=== PATIENT | male | born 1970 | race Caucasian/White ===

== ENCOUNTER 2019-01-20 12:53 | Emergency (ER) | payer OTHER ==
[~2019-01-20] VITALS: Ht 175.3 cm; Wt 90.7 kg
[~2019-01-20 12:53] MED LIST: CIPRO500 MG PO; COZAAR 25 MG TA25 M2 PO; DESYREL50 MG PO; FLOMAX PO; HYDROCODONE-APA1 TA1 PO; LOSARTAN POTASS25 MG PO; NORCO 5-325 TA1 EACH PO; PHENERGAN 25 MG25 M1 PO; VICODIN 5-5001 EACH PO
[2019-01-20 13:10] LABS: URINE BILIRUBIN NEGATIVE (Negative); URINE BLOOD TRACE (Negative); URINE CLARITY CLEAR; URINE COLOR YELLOW; URINE GLUCOSE-RANDOM NEGATIVE (Negative); URINE KETONES TRACE (Negative); URINE LEUKOCYTES-REFLEX NEGATIVE (Negative); URINE NITRITE-REFLEX NEGATIVE (Negative); URINE PROTEIN TRACE (Negative); URINE SPECIFIC GRAVITY >= 1.030 (1.005-1.030); URINE UROBILINOGEN 0.2 E.U./dl (0.2-1.0)
[2019-01-20] MEDS ORDERED: NORVASC5 MG PO (13:10)
[2019-01-20] MEDS ORDERED: CELEXA10 MG PO (13:10)
[2019-01-20] MEDS ORDERED: COZAAR100 MG PO (13:10)
[2019-01-20] MEDS ORDERED: CLONAZEPAM 0.50.5 M1 PO (13:11)
[2019-01-20 13:19] LABS: ABSOLUTE EOSINOPHILS 0.1 thou/uL (0.0-0.7); ABSOLUTE LYMPHOCYTES 1.8 thou/uL (0.8-5.3); ABSOLUTE MONOCYTES 0.7 thou/uL (0.0-1.2); BASOPHILS 0.5 %; HEMATOCRIT 46.7 % (42.0-52.0); HEMOGLOBIN 16.3 gm/dL (14.0-18.0); LYMPHOCYTES 20.5 %; MCH 31.3 pg (26.0-34.0); MCHC 34.9 g/dL (28.0-37.0); MCV 89.7 fL (80.0-100.0); MPV 8.4 fl. (7.2-11.1); NUCLEATED RBCS 0 /100WBC; PLATELET COUNT* 200 thou/uL (150-400); RDW-CV 13.5 % (10.5-14.5); WBC 8.6 thou/uL (4.0-11.0)
[2019-01-20 13:30] LABS: ANION GAP 9 mmol/L (7-16); BUN 16 mg/dL (7-18); CHLORIDE 105 mmol/L (98-107); CO2 28 mmol/L (21-32); CREATININE 1.1 mg/dL (0.6-1.3); GLUCOSE 104 mg/dL (70-99); POTASSIUM 4.1 mmol/L (3.5-5.1); SODIUM 142 mmol/L (136-145)
[2019-01-20 13:36] LABS: ALBUMIN < 0.6 g/dL (3.4-5.0); ALKALINE PHOSPHATASE 88 U/L (46-116); SGOT 16 U/L (15-37); SGPT 20 U/L (30-65); TOTAL BILIRUBIN 0.4 mg/dL (<0.1-1.0); TOTAL PROTEIN 7.9 g/dL (6.4-8.2)
[2019-01-20 13:38] LABS: CALCIUM < 5.0 mg/dL (8.5-10.1)
[2019-01-20 14:14] LABS: CALCIUM 9.5 mg/dL (8.5-10.1); CREATININE 1.1 mg/dL (0.6-1.3); POTASSIUM 4.3 mmol/L (3.5-5.1)
[2019-01-20 14:18] LABS: ALBUMIN 3.9 g/dL (3.4-5.0); TOTAL BILIRUBIN 0.5 mg/dL (<0.1-1.0); TOTAL PROTEIN 7.6 g/dL (6.4-8.2)
[2019-01-20] MEDS ORDERED: NORCO 5-325 TA1 EACH PO (15:35)
[2019-01-20] MEDS ORDERED: CIPRO500 MG PO (15:35)
[2019-01-20] MEDS ORDERED: FLAGYL500 M1 PO (15:35)
[2019-01-20 15:43] VITALS: BP 146/102
--- NOTE | 2019-01-21 11:38 | EKG ---
[place] [address] ELECTROCARDIOGRAM REPORT Name: JAVON JUAREZ [id number] Admission: 01/20/19 Attend Phys: Discharge: 01/20/19 Date of : 68 Report #: [id number] THIS REPORT FOR: //name// [facility] ED Test Date: 2019-01-20 Test Time: 13:57:44 Pat Name: JAVON JUAREZ Department: Room: Gender: M [employer]: ANNA : 1970 Requested By: Tamie De Souza Order Number: [id number] MD: Kana Rutledge Measurements Intervals [place] Rate: 63 P: -1 FL: 152 QRS: -11 QRSD: 93 T: 12 QT: 388 QTc: 398 Interpretive Statements Sinus rhythm Baseline wander in lead(s) V3 No previous ECG available for comparison Electronically Signed On 01-21-2019 11:38:39 CDT by Kana Rutledge [email or web address] <ELECTRONICALLY SIGNED> By: Kana Rutledge MD, [facility] 01/21/19 1138 [id number] Kana Rutledge MD, FACC /EPI
== END 2019-01-20 15:44 | disposition home or self-care (01) ==
LOC: M.ERS 12:53
PROVIDERS: Nurse Practitioner Family
DX: K52.9 Noninfective gastroenteritis and colitis, unspecified (principal); I10 Essential (primary) hypertension; F41.9 Anxiety disorder, unspecified; Z87.442 Personal history of urinary calculi